=== PATIENT | male | born 1970 | race African-American/Black ===

== ENCOUNTER 2017-11-13 01:25 | Emergency (ER) | payer OTHER ==
[~2017-11-13] VITALS: Ht 170.2 cm; Wt 77.1 kg
[2017-11-13 01:30] VITALS: BP 134/90
--- NOTE | 2017-11-13 01:35 | NUR ---
TO LOBBY A/W BED, AMBULATORY, VSS, MANUEL NOTED
--- NOTE | 2017-11-13 01:47 | NUR ---
PT TAKEN TO BED 9
[2017-11-13] MEDS ORDERED: KETOROLAC 30 MG/ML VIAL IM ONE (02:10)
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
[2017-11-13] MEDS ORDERED: HYDROcodone/APAP 5/325 MG 1 TAB TAB PO ONE (02:30)
[2017-11-13] MEDS ORDERED: KETOROLAC 60 MG/2 ML VIAL IM ONE (02:30)
[2017-11-13 02:50] VITALS: BP 132/88
--- NOTE | 2017-11-13 02:51 | NUR ---
Patient discharged with v/s stable. Written and verbal after care instructions given and explained. Patient alert, oriented and verbalized understanding of instructions. Ambulatory with steady gait. All questions addressed prior to discharge. ID band removed. Patient advised to follow up with PMD. Rx of NORCO, HYDROXYZINE, DEBROX EAR DROP given. Patient educated on indication of medication including possible reaction and side effects. Opportunity to ask questions provided and answered.
== END 2017-11-13 02:51 | disposition home or self-care (01) ==
LOC: MED 01:25
DX: S80.861A Insect bite (nonvenomous), right lower leg, initial encounter (principal); S39.012A Strain of muscle, fascia and tendon of lower back, initial encounter; H61.22 Impacted cerumen, left ear; W57.XXXA Bitten or stung by nonvenomous insect and other nonvenomous arthropods, initial encounter; V49.9XXA Car occupant (driver) (passenger) injured in unspecified traffic accident, initial encounter; Y93.89 Activity, other specified; Y92.89 Other specified places as the place of occurrence of the external cause; Y99.8 Other external cause status
CPT/HCPCS: 99283; J1885

== ENCOUNTER 2018-11-02 20:16 | Emergency (ER) | payer OTHER ==
[~2018-11-02] VITALS: Ht 170.2 cm; Wt 80.7 kg
[2018-11-02 20:30] VITALS: BP 141/87
--- NOTE | 2018-11-02 20:56 | NUR ---
PT TAKEN TO XRAY FROM [facility]IAG[facility]
[2018-11-02] MEDS ORDERED: DEXAMETHASONE 10 MG/ML VIAL PO ONE (21:20)
--- NOTE | 2018-11-02 21:20 | NUR ---
CAME WITH C/O OF COUGH FOR 4 DAYS, WITH SORETHROAT, BOTH EAR PAIN, AND THE CHEST HURTS WHEN HE COUGH
--- NOTE | 2018-11-02 21:30 | NUR ---
RESULT BACK AND NOTED BY PA AND FOR D/C.
[2018-11-02 21:40] VITALS: BP 125/80
--- NOTE | 2018-11-02 21:40 | NUR ---
Patient discharged with v/s stable. Written and verbal after care instructions given and explained. Patient alert, oriented and verbalized understanding of instructions. Ambulatory with steady gait. All questions addressed prior to discharge. ID band removed. Patient advised to follow up with PMD. Rx of PSEUDOEPHEDRINE, ACETAMINOPHEN, PROMETHAZINE, PREDNISONE given. Patient educated on indication of medication including possible reaction and side effects. Opportunity to ask questions provided and answered.
== END 2018-11-02 21:40 | disposition home or self-care (01) ==
LOC: MED 20:16
DX: J06.9 Acute upper respiratory infection, unspecified (principal); R03.0 Elevated blood-pressure reading, without diagnosis of hypertension; F17.210 Nicotine dependence, cigarettes, uncomplicated
CPT/HCPCS: 71045; 99283; J1100

== ENCOUNTER 2018-11-27 23:32 | Emergency (ER) | payer OTHER ==
[~2018-11-27] VITALS: Ht 172.7 cm; Wt 81.6 kg
[2018-11-27 23:38] VITALS: BP 120/80
--- NOTE | 2018-11-27 23:38 | NUR ---
TO BED # 12 AMBULATORY
--- NOTE | 2018-11-27 23:40 | NUR ---
47 Y/O M, PRESENTED TO ED C/O COUGH AND NASAL CONGESTION FOR OVER A WEEK, C/O THROAT PAIN 9/10 DUE TO DRY COUGH, DENIES FEVER, CHILLS, NO N/V/D, AAOX4 GCS 15, RR EVEN UNLABORED, BILATERAL LUNG SOUNDS CLEAR TO AUSCULTATION, NOTED BOTH EYES WITH REDNESS, ED MD DR. CHACON MADE AWARE, WILL CONTINUE TO MONITOR CLOSELY, BED LOCKED IN LOWEST POSITION, ONE SIDERAIL UP.
--- NOTE | 2018-11-28 01:42 | NUR ---
Patient discharged with v/s stable. Written and verbal after care instructions given and explained. Patient alert, oriented and verbalized understanding of instructions. Ambulatory with steady gait. All questions addressed prior to discharge. ID band removed. Patient advised to follow up with PMD. Rx of GUAIATUSSIN given. Patient educated on indication of medication including possible reaction and side effects. Opportunity to ask questions provided and answered.
[2018-11-28 01:43] VITALS: BP 125/77
== END 2018-11-28 01:42 | disposition home or self-care (01) ==
LOC: MED 23:32
DX: J20.9 Acute bronchitis, unspecified (principal)
CPT/HCPCS: 71045; 99283; Q0092

== ENCOUNTER 2019-02-04 05:00 | Emergency (ER) | payer OTHER ==
[~2019-02-04] VITALS: Ht 170.2 cm; Wt 81.6 kg
[2019-02-04 05:03] VITALS: BP 141/72
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
[2019-02-04] MEDS ORDERED: oxyCODONE/APAP 5/325 MG 1 TAB TAB PO ONE (05:55)
--- NOTE | 2019-02-04 06:10 | NUR ---
PT REFUSED MEDICATION. STATES HE WANTS TO WAIT TO TAKE MEDS AT HOME.
--- NOTE | 2019-02-04 06:20 | NUR ---
RADIOLOGY AT BEDSIDE.
--- NOTE | 2019-02-04 06:46 | NUR ---
PT RESTING IN BED WITH EYES CLOSED. NO COMPLAINTS AT THIS TIME. VSS. WILL CONTINUE TO MONITOR.
--- NOTE | 2019-02-04 07:06 | NUR ---
REPORT GIVEN TO MELINDA LEWIS. TRANSFER OF CARE AT THIS TIME.
--- NOTE | 2019-02-04 07:07 | NUR ---
REPORT RECIEVED FROM MELINDA ARCOS
[2019-02-04 07:23] VITALS: BP 131/78
--- NOTE | 2019-02-04 07:23 | NUR ---
Patient discharged with v/s stable. Written and verbal after care instructions given and explained. Patient alert, oriented and verbalized understanding of instructions. Ambulatory with steady gait. All questions addressed prior to discharge. ID band removed. Patient advised to follow up with PMD. Rx of Percocet given. Patient educated on indication of medication including possible reaction and side effects. Opportunity to ask questions provided and answered.
== END 2019-02-04 07:23 | disposition home or self-care (01) ==
LOC: MED 05:00
DX: M79.644 Pain in right finger(s) (principal); W22.8XXA Striking against or struck by other objects, initial encounter; Y93.89 Activity, other specified; Y92.89 Other specified places as the place of occurrence of the external cause; Y99.8 Other external cause status
CPT/HCPCS: 73130; 99283; Q0092

== ENCOUNTER 2019-02-13 03:42 | Emergency (ER) | payer OTHER ==
[~2019-02-13] VITALS: Ht 172.7 cm; Wt 81.6 kg
[2019-02-13 03:45] VITALS: BP 129/87
--- NOTE | 2019-02-13 03:45 | NUR ---
to bed # 11 ambulatory
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
[2019-02-13 04:11] VITALS: BP 129/87
--- NOTE | 2019-02-13 04:11 | NUR ---
Patient discharged with v/s stable. Written and verbal after care instructions given and explained. Pt encouraged to rest and stay hydrated. Patient alert, oriented and verbalized understanding of instructions. Ambulatory with steady gait. All questions addressed prior to discharge. ID band removed. Patient advised to follow up with PMD. Rx of Prednisone 20mg, Motrin 800mg, Zofran 8mg, Sudafed 120mg, and Crawford 5mg-325mg was given. Patient educated on indication of medication including possible reaction and side effects. Opportunity to ask questions provided and answered.
== END 2019-02-13 04:11 | disposition home or self-care (01) ==
LOC: MED 03:42
DX: J06.9 Acute upper respiratory infection, unspecified (principal); F17.200 Nicotine dependence, unspecified, uncomplicated
CPT/HCPCS: 99283

== ENCOUNTER 2019-02-15 00:23 | Emergency (ER) | payer OTHER ==
[~2019-02-15] VITALS: Ht 170.2 cm; Wt 78.9 kg
[2019-02-15 00:30] VITALS: BP 132/84
--- NOTE | 2019-02-15 00:50 | NUR ---
AMBULATED TO ROOM 11
--- NOTE | 2019-02-15 00:54 | NUR ---
PATIENT PRESENTS TO ED WITH COUGH X 3 DAYS . PT STATES COUGH IS NON-PRODUCTIVE. PT STATES CHEST IS SORE FROM COUGHING. PT STATES HE WANTS STRONG COUGH MEDICINE. PT DENIES TAKING ANY COUGH MEDICINE AT THIS TIME. DENIES N/V/D; SKIN IS PINK/WARM/DRY; AAOX4 WITH EVEN AND STEADY GAIT; LUNGS CLEAR BL; HR EVEN AND REGULAR; PT DENIES ANY FEVER, CP, SOB AT THIS TIME; PATIENT STATES PAIN OF 0/10 AT THIS TIME; VSS; PATIENT POSITIONED FOR COMFORT; HOB ELEVATED; BEDRAILS UP X2; BED DOWN. ER MD MADE AWARE OF PT STATUS.
--- NOTE | 2019-02-15 01:12 | NUR ---
Patient discharged with v/s stable. Written and verbal after care instructions given and explained. Patient alert, oriented and verbalized understanding of instructions. Ambulatory with steady gait. All questions addressed prior to discharge. ID band removed. Patient advised to follow up with PMD. Rx of TESSALON PERLES AND AUGMENTIN given. Patient educated on indication of medication including possible reaction and side effects. Opportunity to ask questions provided and answered. PT DC BY . PT REFUSED TO SIGN DC PAPERWORK.
== END 2019-02-15 01:12 | disposition home or self-care (01) ==
LOC: MED 00:23
DX: J20.9 Acute bronchitis, unspecified (principal)
CPT/HCPCS: 99283

== ENCOUNTER 2019-02-24 05:29 | Emergency (ER) | payer OTHER ==
[~2019-02-24] VITALS: Ht 172.7 cm; Wt 81.6 kg
[2019-02-24 05:34] VITALS: BP 151/90
--- NOTE | 2019-02-24 05:34 | NUR ---
TO BED # 08 AMBULATORY
--- NOTE | 2019-02-24 05:46 | NUR ---
48 M C/O COUGH X 10 DAYS. PT STATES LOW BACK PAIN 8/10 ACHINESS/THROBBING RADIATING TO THROAT AREA. LUNGS CLEAR EVEN UNLABORED, BILATERALLY. PT DENIES CP/SOB. DENIES FEVER CHILLS. DENIES N/V/D. SKIN WARM DRY PINK INTACT. HX: NONE RX: BENZONATE 20 MG PO AX NKA
--- NOTE | 2019-02-24 05:56 | NUR ---
Dr. Howard examining patient.
[2019-02-24 06:10] VITALS: BP 151/82
--- NOTE | 2019-02-24 06:12 | NUR ---
Patient discharged with v/s stable. Written and verbal after care instructions given and explained. Patient alert, oriented and verbalized understanding of instructions. Ambulatory with steady gait. All questions addressed prior to discharge. ID band removed. Patient advised to follow up with PMD. Rx of MOTRIN, PREDNISONE, NORCO given. Patient educated on indication of medication including possible reaction and side effects. Opportunity to ask questions provided and answered.
== END 2019-02-24 06:12 | disposition home or self-care (01) ==
LOC: MED 05:29
DX: R05 Cough (principal); M54.5 Low back pain; R07.9 Chest pain, unspecified
CPT/HCPCS: 99283

== ENCOUNTER 2019-05-09 05:56 | Emergency (ER) | payer OTHER ==
[~2019-05-09] VITALS: Ht 170.2 cm; Wt 79.4 kg
[2019-05-09 06:17] VITALS: BP 141/90
--- NOTE | 2019-05-09 06:17 | NUR ---
TO BED # 01 AMBULATORY
--- NOTE | 2019-05-09 06:43 | NUR ---
48 YEAR OLD MALE COMPLAINS OF ABSCESS IN UPPER GUMS OF MOUTH. PATIENT STATES HE IS UNABLE TO SLEEP BECAUSE OF 10/10 PAIN. PATIENT AOX4, BREATHING EVEN AND UNLABORED, SKIN WARM AND DRY. BED IN LOWEST POSITION, LOCKED, BED RAIL UPX1. PMH -NONE MEDS - IBUPROFEN LAST NIGHT ALLERGIES - NKA
[2019-05-09] MEDS ORDERED: MORPHINE SULFATE 4 MG/ML SYR IVP ONE (07:00)
[2019-05-09] MEDS ORDERED: AMPICILLIN/SULBACTAM 3 GM in NACL 0.9% 100 ML IV ONE (07:00)
--- NOTE | 2019-05-09 07:21 | NUR ---
RECEIVED REPORT FROM SRAVANI LAWRENCE.
[2019-05-09] MEDS ORDERED: AMPICILLIN/SULBACTAM 3 GM VIAL ONE (07:31)
[2019-05-09] MEDS ORDERED: HYDROcodone/APAP 10/325 MG 1 TAB TAB PO ONE (07:55)
[2019-05-09] MEDS ORDERED: LISI-420 PO (08:10)
[2019-05-09 08:57] VITALS: BP 141/90
--- NOTE | 2019-05-09 08:58 | NUR ---
SPOKE WITH PT IN LENGTH ABOUT NOT GIVING NORCO RX BUT NAPROSYN INSTEAD--- IMPORTANCE OF TAKING ANTIBIOTIC AND F/U WITH DENTIST---- PT REFUSED RX NAPROSYN AND PENICILLIN--AMBULATED OUT OF THE ER IN A HASTE.
== END 2019-05-09 08:58 | disposition home or self-care (01) ==
LOC: MED 05:56
DX: K05.10 Chronic gingivitis, plaque induced (principal); Z79.899 Other long term (current) drug therapy
CPT/HCPCS: 96365; 99283; J0295; J2270

== ENCOUNTER 2019-07-12 20:48 | Emergency (ER) | payer OTHER ==
[~2019-07-12] VITALS: Ht 172.7 cm; Wt 81.6 kg
[~2019-07-12 20:48] MED LIST: LISI-420 PO
[2019-07-12 20:57] VITALS: BP 131/95
[2019-07-12] MEDS ORDERED: KETOROLAC 30 MG/ML VIAL IM ONE (21:10)
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
--- NOTE | 2019-07-12 21:25 | NUR ---
SPLINT PLACED BY EMT. +CMS, PATIENT STATES IMPROVED PAIN AFTER MEDICATION AND SPLINT PLACEMENT. AMB WITH CRUTCHES SAFELY.
--- NOTE | 2019-07-12 21:29 | NUR ---
PTS RIGHT ANKLE PLACED IN A POSTERIOR SHORT LEP SPLINT. [place] [facility] [place]
[2019-07-12 21:30] VITALS: BP 131/95
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
== END 2019-07-12 21:30 | disposition home or self-care (01) ==
LOC: MED 20:48
DX: S82.891D Other fracture of right lower leg, subsequent encounter for closed fracture with routine healing (principal); Z79.899 Other long term (current) drug therapy; V89.2XXD Person injured in unspecified motor-vehicle accident, traffic, subsequent encounter
CPT/HCPCS: 29515; 96372; 99283; J1885

== ENCOUNTER 2019-07-20 09:32 | Emergency (ER) | payer OTHER ==
[~2019-07-20] VITALS: Ht 172.7 cm; Wt 81.6 kg
[2019-07-20 09:35] VITALS: BP 140/115
--- NOTE | 2019-07-20 09:40 | NUR ---
PT. TAKEN TO BED 7 VIA W/C
--- NOTE | 2019-07-20 09:41 | NUR ---
Dr. Noble bedside evaluating patient
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
[2019-07-20] MEDS ORDERED: HYDROcodone/APAP 5/325 MG 1 TAB TAB PO ONE (09:55)
[2019-07-20] MEDS ORDERED: IBUPROFEN 400 MG TAB PO ONE (09:55)
--- NOTE | 2019-07-20 10:09 | NUR ---
splint placement on RLE performed by EMT. pt. tolerated procedure well. pedal pulses palpable and strong, RLE capillary refill <2seconds. no further needs. pt. resting in bed comfortably, bed lowest and locked, rails up x 1.
--- NOTE | 2019-07-20 10:10 | NUR ---
PLACED SHORT LEG SPLINT ON PT
--- NOTE | 2019-07-20 10:20 | NUR ---
PT. REPORTS PAIN FROM 10/10 TO 8/10 AND IS TOLERABLE. PT. APPEARS CALM.
--- NOTE | 2019-07-20 10:28 | NUR ---
Patient discharged with v/s stable. pt discharged with splint on RLE. palpable pedal pusle and capillary refill <2seconds. Written and verbal after care instructions given and explained. Patient alert, oriented and verbalized understanding of instructions. Ambulatory with crutches assist. All questions addressed prior to discharge. ID band removed. Patient advised to follow up with PMD. Rx of norco given. Patient educated on indication of medication including possible reaction and side effects. Opportunity to ask questions provided and answered.
[2019-07-20 10:29] VITALS: BP 142/86
== END 2019-07-20 10:28 | disposition home or self-care (01) ==
LOC: MED 09:32
DX: M25.572 Pain in left ankle and joints of left foot (principal); R03.0 Elevated blood-pressure reading, without diagnosis of hypertension; Z79.899 Other long term (current) drug therapy
CPT/HCPCS: 29515; 99283

== ENCOUNTER 2019-07-28 10:00 | Emergency (ER) | payer OTHER ==
[~2019-07-28] VITALS: Ht 170.2 cm; Wt 79.4 kg
[2019-07-28 10:04] VITALS: BP 136/69
[2019-07-28] MEDS ORDERED: BACITRACIN OINT 500 UNITS/GM PKT TP ONE (10:20)
[2019-07-28] MEDS ORDERED: IBUPROFEN 800 MG TAB PO ONE (10:20)
[2019-07-28 11:13] VITALS: BP 136/69
== END 2019-07-28 11:13 | disposition home or self-care (01) ==
LOC: MED 10:00
DX: S50.311A Abrasion of right elbow, initial encounter (principal); M25.571 Pain in right ankle and joints of right foot; Z79.899 Other long term (current) drug therapy; W19.XXXA Unspecified fall, initial encounter; Y93.89 Activity, other specified; Y92.89 Other specified places as the place of occurrence of the external cause; Y99.8 Other external cause status
CPT/HCPCS: 73080; 73610; 99284; Q0092

== ENCOUNTER 2019-08-24 18:31 | Emergency (ER) | payer OTHER ==
[~2019-08-24] VITALS: Ht 170.2 cm; Wt 81.6 kg
[2019-08-24 18:33] VITALS: BP 140/89
--- NOTE | 2019-08-24 19:59 | NUR ---
Pt called outside no answer, toilet check no answer. Per admitting they saw the pt walk out. Pt LWBS and informed Dr Gary.
== END 2019-08-24 19:59 | disposition left against medical advice (07) ==
LOC: MED 18:31
DX: M25.571 Pain in right ankle and joints of right foot (principal); Z53.21 Procedure and treatment not carried out due to patient leaving prior to being seen by health care provider
CPT/HCPCS: 73610; 99281; 99283